=== PATIENT | male | born 1960 | race Caucasian/White ===

== ENCOUNTER 2025-04-02 21:53 | Inpatient (IN) | payer MEDICAID, SELFPAY ==
--- NOTE | ~2025-04-02 | CT_ITS ---
CLINICAL HISTORY: R flank Pain; Hematuria CT abdomen and pelvis with contrast Comparison: None provided Findings: No consolidation or effusion. There is a right lower lobe 4 mm nodule, series 5, image . The remainder of pulmonary parenchyma is normal. Stomach is distended. Spleen is normal. Hepatic parenchyma is normal. Gallbladder is decompressed. Pancreas is normal. The kidneys demonstrate normal enhancement. No hydronephrosis, renal lithiasis, or ureteral lithiasis. No evidence of hydroureter. Prostate demonstrates multiple intra prostate radiation seeds. There is high density material within the dependent bladder which may represent hematuria, blood products, or less likely intra vesicular mass. There is bladder wall thickening without complete bladder distention. No masses at the ureteral vesicular junction. No ureterovesicular junction stones. Small bowel is normal. Large bowel is normal. Diverticulosis without evidence of diverticulitis present in the sigmoid colon. No adenopathy. No acute spinal fracture. No focal lytic or sclerotic osseous lesions. Left sacroiliac partial fusion. IMPRESSION: No evidence of hydronephrosis, renal lithiasis, or hydroureter. High density material within the dependent bladder may represent hematuria or less likely hyperdense intravesicular mass. Prostate hypertrophy status post placement of prostate radiotherapy seeds. This document has been electronically signed by: Yordan Lee III, MD PHD on 04/03/2025 00:54:39
[2025-04-02 21:57] VITALS: BP 117/79; PULSE 99; RESP 18; TEMP 36.7; O2SAT 96; BMI 27.6
[2025-04-02 22:12] LABS: MANUAL DIFF FLAG NO
[2025-04-02 22:13] LABS: Hematocrit 43.6 % (42.0-52.0); Hemoglobin 15.1 g/dl (14.0-18.0); Imm Gran Abs Auto 0.02 X10*3/uL (0.00-0.03); Imm Gran Pct Auto 0.2 % (0.0-0.4); Lymphocytes Absolute Auto 2.8 X10*3/uL (1.2-4.9); Mean Corpuscular HGB Conc 34.6 g/dl (31.0-36.0); Mean Corpuscular Hemoglobin 31.7 pg (27.0-33.0); Mean Corpuscular Volume 91.6 fL (80.0-98.0); NRBC Abs Auto 0.000 X10*3/uL (0.0-0.012); NRBC Pct Auto 0.0 /100WBC (0.0-0.2); Platelet Count 233 X10*3/uL (160-400); Red Blood Count 4.76 X10*6/uL (4.60-5.80); White Blood Count 8.9 X10*3/uL (4.8-10.8)
[2025-04-02 22:27] LABS: Alanine Aminotransferase 54 U/L (0-40); Albumin Level 4.6 g/dL (3.5-5.0); Alkaline Phosphatase 83 U/L (39-117); Anion Gap 10 (12-20); Aspartate Amino Transferase 34 U/L (5-37); Blood Urea Nitrogen 13 mg/dL (9-16); Calcium 9.6 mg/dL (8.4-10.2); Carbon Dioxide 24 mmol/L (22-29); Chloride 109 mmol/L (96-108); Creatinine Clr Calc Pharmacy 99.4; Estimated Glomerular Filt Rate > 60; Potassium 4.0 mmol/L (3.3-5.1); Sodium 139 mmol/L (135-145); Total Protein 7.0 g/dL (6.5-8.0)
--- NOTE | 2025-04-02 22:42 | PC.NURSE ---
pt a&ox4, respirations even and unlabored. pt reports onset of blood in urine, pain with urination and trouble urinating x1 day, pt reports mild left flank pain but reports it is intermittent. pt provided urine sample at this time, urine noted to be bright red with clots. pt reports he has trouble starting a stream of urine. sample obtained and sent to lab
[2025-04-02 22:57] LABS: Appearance Urine Clear; Glucose Urine UA 100 mg/dL (Negative); PH 6.0 (5.0-9.0); Specific Gravity - Urine 1.010 (1.005-1.025); UMIC TRIGGER UACC YES
[2025-04-02 23:08] LABS: UACC Culture Trigger YES
--- NOTE | 2025-04-02 23:48 | ED_ITS ---
HPI - Male Genitourinary General Chief complaint: Urogenital-Male Stated complaint: blood in urine Time Seen by Provider: 04/02/25 23:46 Source: patient and family Mode of arrival: ambulatory Limitations: no limitations History of Present Illness ED Provider: Duran ROBLES HPI Narrative: The patient is a 64-year-old male presenting to the ED reporting since Saturday he has been experiencing a very dull mild right-sided flank pain, and 2 days ago developed gross hematuria. The patient denies associated fever/chills, nausea, vomiting, or history of kidney stones. Patient reports history of BPH with a UroLift procedure 1 year ago, no recent instrumentation. The patient has not attempted any medication for his symptoms, does not currently follow with his urologist. Related Data Allergies Allergy/AdvReac Type Severity Reaction Status Date / Time peanut Allergy Anaphylaxis Verified 04/02/25 21:59 Review of Systems 2 Review of Systems: Yes all other systems are reviewed and are negative PMFSH Social History Social History Smoked in Last 30 Days: No Use of substances other than those prescribed or required for medical reasons: No Advance Directives: No Physical Exam 2 Vital Signs: Vital Signs: Last Vital Signs Temp 98.5 F 04/03/25 02:48 Pulse 65 04/03/25 02:48 Resp 16 04/03/25 02:48 BP 117/75 04/03/25 02:48 Pulse Ox 96 04/03/25 02:48 O2 Del Method Room Air 04/03/25 02:48 BMI result Body Mass Index 27.6 CONSTITUTIONAL: The patient appears non-toxic, well nourished and in no acute distress. Vital signs as documented. HEAD: Atraumatic, normocephalic. EYES: EOMs grossly intact, pupils equal, conjunctiva clear, no exudate. ENT: Nares patent, no discharge. Airway patent, no audible stridor, visible mucosa is pink and moist without noted lesions. NECK: Trachea is midline, no obvious masses or gross abnormalities. CHEST: Symmetric movement, normal appearance. LUNGS: LS present and CTAB, no w/r/r. Non-labored work of breathing. CARDIAC: Regular Rhythm, S1/S2 appreciated, no murmurs, rubs or gallops. ABDOMEN: Abdomen soft and non-tender x4 quadrants, no palpable masses or organomegaly. Positive CVAT on the right, negative on the left. : Deferred. EXTREMITIES: Normal tone, moves all extremities spontaneously without reported pain. No obvious acute injury or deformity noted. NEURO: Alert and oriented x3, CN II-XII appear grossly intact. Cerebellar Functioning grossly intact. No obvious sensory or motor deficits. Speech clear and appropriate. PSYCH: normal affect, appropriate eye contact, fluid speech, with appropriate response to questioning. No reported suicidality or homicidality. SKIN: Warm, dry, color appropriate, normal turgor. No rashes noted. Medications Administered Discontinued Medications Generic Name Dose Route Start Last Admin Trade Name Freq PRN Reason Stop Dose Admin Diazepam 5 mg 04/03/25 01:07 04/03/25 01:34 Diazepam 10 Mg/2 Ml Cartridge IVPUSH 04/03/25 01:08 5 mg STAT STA Administration Sodium Chloride 1,000 mls @ 999 mls/hr 04/02/25 23:45 04/03/25 01:52 Ns IV 04/03/25 00:45 Infused .Q1H1M DANY Infusion Iohexol 85 ml 04/03/25 00:19 04/03/25 00:19 Iohexol 350 Mg/Ml 100 Ml Infus..Btl IV 04/03/25 00:20 85 ml ONCE ONE Administration Ketorolac Tromethamine 15 mg 04/02/25 23:49 04/03/25 00:19 Ketorolac Tromethamine 15 Mg/Ml Vial IVPUSH 04/02/25 23:50 15 mg ONCE ONE Administration Medical Decision Making Medical Decision Making MDM Narrative: 11:55 PM 04/02/2025 (Shagufta ROBLES): The patient is a 64-year-old male presenting to the ED for evaluation of a dull right flank pain since Saturday, with hematuria for the past 2 days. The patient denies history of kidney stones, exam is largely reassuring with only mild right CVAT. Laboratory evaluation shows no leukocytosis, anemia, electrolyte abnormality, or INDY. The patient's LFTs are unremarkable. The patient's urinalysis shows protein, glucose, blood, nitrites, and trace bacteria. Patient is having no dysuria. The patient will be treated with IV fluid hydration, Toradol, and we will obtain CT to evaluate for kidney stone versus less likely cystitis or pyelonephritis. 1:09 AM 04/03/2025 (Shagufta ROBLES): The patient's CT has resulted and shows no hydroureter, hydronephrosis, or obvious renal stone. The patient's bladder does show hyperdense material consistent with likely blood versus less likely mass. BPH is noted consistent with the patient's reported history. The patient will have a Christianson catheter placed for CBI, if unable to clear hematuria patient will be admitted for urology consultation. Of note the patient is currently feeling highly anxious, we will treat with IV Valium. 3:42 AM 04/03/2025 (Shagufta ROBLES): The patient has had a total of 6 L of continuous bladder irrigation, despite this patient still continues to have blood-tinged urine, we will admit for continued CBI and consideration of urology consultation. Admission/Observation Consideration of admission/observation: Escalation of care including admission/observation considered Consult Healthcare Provider Management of the patient was discussed with: Hospitalist Lab Data MDM Lab Attestation statement: I reviewed the patient's lab results. 04/02/25 22:06 04/02/25 22:06 Labs: Lab Results 04/02/25 04/02/25 Range/Units 22:06 22:39 WBC 8.9 (4.8-10.8) X10*3/uL RBC 4.76 (4.60-5.80) X10*6/uL Hgb 15.1 (14.0-18.0) g/dl Hct 43.6 (42.0-52.0) % MCV 91.6 (80.0-98.0) fL MCH 31.7 (27.0-33.0) pg MCHC 34.6 (31.0-36.0) g/dl RDW 12.8 (11.0-16.0) % Plt Count 233 (160-400) X10*3/uL MPV 9.3 L (9.4-12.4) fL Immature Gran % (Auto) 0.2 (0.0-0.4) % Neut % (Auto) 55.9 (45-73) % Lymph % (Auto) 31.4 (20-40) % [place] % (Auto) 8.4 (2-11) % Eos % (Auto) 3.4 (0-4) % Baso % (Auto) 0.7 (0-2) % Lymph # (Auto) 2.8 (1.2-4.9) X10*3/uL [place] # (Auto) 0.8 (0.1-1.2) X10*3/uL Eos # (Auto) 0.3 (0.0-0.4) X10*3/uL Baso # (Auto) 0.1 (0.0-0.2) X10*3/uL Abs Immat Gran (auto) 0.02 (0.00-0.03) X10*3/uL Absolute Neuts (auto) 5.0 (2.0-8.3) x10*3/uL Absolute Nucleated RBC 0.000 (0.0-0.012) X10*3/uL Nucleated RBC % (auto) 0.0 (0.0-0.2) /100WBC Sodium 139 (135-145) mmol/L Potassium 4.0 (3.3-5.1) mmol/L Chloride 109 H (96-108) mmol/L Carbon Dioxide 24 (22-29) mmol/L Anion Gap 10 L (12-20) BUN 13 (9-16) mg/dL Creatinine 0.77 (0.5-1.4) mg/dL Estim Creat Clear Calc 99.4 Estimated GFR > 60 Random Glucose 111 (60-115) mg/dL Calcium 9.6 (8.4-10.2) mg/dL Total Bilirubin 0.2 (0.0-1.0) mg/dL AST 34 (5-37) U/L ALT 54 H (0-40) U/L Alkaline Phosphatase 83 (39-117) U/L Total Protein 7.0 (6.5-8.0) g/dL Albumin 4.6 (3.5-5.0) g/dL Urine Color PINK Urine Appearance Clear Urine pH 6.0 (5.0-9.0) Ur Specific [place] 1.010 (1.005-1.025) Urine Protein 300 (3+) H (Neg-Trace) mg/dL Urine Glucose (UA) 100 H (Negative) mg/dL Urine Ketones Negative (Negative) mg/dL Urine Blood Large (3+) H (Negative) Urine Nitrite Positive H (Negative) Ur Leukocyte Esterase Negative (Negative) Urine RBC >20 H (0-2) /HPF Urine WBC 0-5 (0-5) /HPF Ur Squamous Epith Cells 0-2 (0-2) /HPF Urine Bacteria Trace (None Seen) Hyaline Casts 0-2 (0-2) /LPF Radiology Impression Discussion of test interpretation with radiology: I have reviewed the radiologist's reading. Radiologist Impression: CLINICAL HISTORY: R flank Pain; Hematuria CT abdomen and pelvis with contrast Comparison: None provided Findings: No consolidation or effusion. There is a right lower lobe 4 mm nodule, series 5, image 9/83. The remainder of pulmonary parenchyma is normal. Stomach is distended. Spleen is normal. Hepatic parenchyma is normal. Gallbladder is decompressed. Pancreas is normal. The kidneys demonstrate normal enhancement. No hydronephrosis, renal lithiasis, or ureteral lithiasis. No evidence of hydroureter. Prostate demonstrates multiple intra prostate radiation seeds. There is high density material within the dependent bladder which may represent hematuria, blood products, or less likely intra vesicular mass. There is bladder wall thickening without complete bladder distention. No masses at the ureteral vesicular junction. No ureterovesicular junction stones. Small bowel is normal. Large bowel is normal. Diverticulosis without evidence of diverticulitis present in the sigmoid colon. No adenopathy. No acute spinal fracture. No focal lytic or sclerotic osseous lesions. Left sacroiliac partial fusion. IMPRESSION: No evidence of hydronephrosis, renal lithiasis, or hydroureter. High density material within the dependent bladder may represent hematuria or less likely hyperdense intravesicular mass. Prostate hypertrophy status post placement of prostate radiotherapy seeds. This document has been electronically signed by: Yordan Lee III, MD PHD on 04/03/2025 00:54:39 Discharge Plan Discharge Clinical Impression: Hematuria Patient Disposition: Admitted As Inpatient Print Language: Lao
[2025-04-03] VITALS (7 sets, daily range): BP systolic 117–162; BP diastolic 61–98; PULSE 59–77; RESP 15–20; TEMP 36.1–37; O2SAT 95–100; BMI 27.6
[2025-04-03] MEDS: iohexoL 350 MG/ML 100 ML INFUS..BTL 85 ML IV (00:19)
[2025-04-03] MEDS: diazePAM 10 MG/2 ML CARTRIDGE 5 MG IVPUSH (01:34)
--- NOTE | 2025-04-03 01:51 | PC.NURSE ---
3 way catheter placed per provider order at this time, initially 100ml of bright red blood drained. 22F [address] way coude placed with 35ml in balloon. pt tolerated well and offers no complaints
--- NOTE | 2025-04-03 04:06 | PM.IMHP ---
History of Present Illness Date of Service: 04/03/25 Attending physician on admission: Cristal Wogn Chief Complaint: hematuria Patient is a 64-year-old male with a past medical history significant for BPH s/p radioactive seed therapy with UroLift, and HLD, who presented to the ED due to right-sided flank pain x3 days and hematuria x2 days. Patient reports that the flank pain is mild. No fever, chills, nausea, vomiting or dysuria. He denies any recent instrumentation. He states he has urinary frequency at baseline but has had more nocturia. Review of Systems Constitutional: Constitutional: Denies body ache(s), Denies fatigue and Denies headache(s) Eyes: Eyes: Denies change in vision ENT: Denies headache(s), Denies nasal discharge and Denies sore throat Cardiovascular: Cardiovascular: Denies chest pain, Denies rapid heart rate, Denies lightheadedness and Denies dyspnea Respiratory: Respiratory: Denies chest congestion, Denies cough, Denies dyspnea and Denies wheezing Gastrointestinal: Gastrointestinal: Denies abdominal pain, Denies nausea and Denies vomiting Genitourinary: Genitourinary: Reports as per HPI and Reports hematuria Musculoskeletal: Musculoskeletal: Reports back pain, Denies myalgias and Denies numbness Integumentary/Breasts: Skin/Breast: Denies rash Neurologic: Denies confusion, Denies headache(s) and Denies numbness Psychiatric: Psychiatric: Denies confusion Endocrine: Endocrine: Denies fatigue Hematologic/Lymphatic: Hematologic/Lymphatic: Denies easy bleeding and Denies easy bruising Allergic/Immunologic: Allergic/Immunologic: Denies wheezing [facility] Medical History (Updated 04/03/25 @ 04:09 by Alejandra Rucker PA-C) HLD (hyperlipidemia) BPH (benign prostatic hyperplasia) Functional capacity: independent ambulation Social History Patient Tobacco Use Status: Never used Tobacco Meds Allergies Allergy/AdvReac Type Severity Reaction Status Date / Time peanut Allergy Anaphylaxis Verified 04/02/25 21:59 Physical Exam Vital Signs and Narrative: Vital Signs: Last Vital Signs Temp 98.5 F 04/03/25 02:48 Pulse 65 04/03/25 02:48 Resp 16 04/03/25 02:48 BP 117/75 04/03/25 02:48 Pulse Ox 96 04/03/25 02:48 O2 Del Method Room Air 04/03/25 02:48 BMI result Body Mass Index 27.6 General: AOx3, no acute distress Resp: CTA bilaterally CVS: S1, S2, RRR GI/: +BS, NT, no distention. CBI running, pink tinged urine Skin: Warm, dry Neuro: Cranial nerves II-XII grossly intact bilaterally. Motor grossly intact bilaterally Extremities: No LE edema Psych: Appropriate affect Const: General: No confusion Orientation/consciousness: No confusion Neuro: General: No confusion Results Labs 04/02/25 22:06 04/02/25 22:06 Labs: Laboratory Results - last 24 hr 04/02/25 04/02/25 22:06 22:39 MCV 91.6 MCH 31.7 MCHC 34.6 RDW 12.8 Plt Count 233 MPV 9.3 L Immature Gran % (Auto) 0.2 Neut % (Auto) 55.9 Lymph % (Auto) 31.4 [place] % (Auto) 8.4 Eos % (Auto) 3.4 Baso % (Auto) 0.7 Lymph # (Auto) 2.8 [place] # (Auto) 0.8 Eos # (Auto) 0.3 Baso # (Auto) 0.1 Abs Immat Gran (auto) 0.02 Absolute Neuts (auto) 5.0 Absolute Nucleated RBC 0.000 Nucleated RBC % (auto) 0.0 Anion Gap 10 L Estim Creat Clear Calc 99.4 Estimated GFR > 60 Random Glucose 111 Calcium 9.6 Total Bilirubin 0.2 AST 34 ALT 54 H Alkaline Phosphatase 83 Total Protein 7.0 Albumin 4.6 Urine Color PINK Urine Appearance Clear Urine pH 6.0 Ur Specific [place] 1.010 Urine Protein 300 (3+) H Urine Glucose (UA) 100 H Urine Ketones Negative Urine Blood Large (3+) H Urine Nitrite Positive H Ur Leukocyte Esterase Negative Urine RBC >20 H Urine WBC 0-5 Ur Squamous Epith Cells 0-2 Urine Bacteria Trace Hyaline Casts 0-2 Assessment and Plan (1) Hematuria: Qualifiers: Hematuria type: gross Qualified Code(s): R31.0 - Gross hematuria Status: Acute (2) UTI (urinary tract infection): Status: Acute Plan Patient is a 64-year-old male with a past medical history significant for BPH s/p radioactive seed therapy with UroLift, and HLD, who presented to the ED due to right-sided flank pain x3 days and hematuria x2 days. hematuria/UTI - no leukocytosis, vitals stable, lactic acid and blood cultures ordered - UA with large blood, nitrate positive, trace bacteria - ceftriaxone Q24H pending culture - A/P CT with no evidence of hydronephrosis, renal lithiasis or hydroureter. High density material within the dependent bladder may represent hematuria or less likely hyperdense intravesicular mass. Prostate hypertrophy status post placement of prostate radiotherapy seeds - placed on CBI - urology consult - follow CBC and BMP HLD - continue home meds moderate persistent asthma, no acute exacerbation - continue home meds med rec pending full code VTE prophy: pneumoboots Patient with gross hematuria complicated by possible UTI, requiring admission for at least 2 midnights stay for IV antibiotics and urology consultation. Quality Stroke Does the patient have a stroke diagnosis?: No VTE Prior VTE?: No VTE Risk Level:: Medical - moderate - high VTE Device Contraindication: N/A - Device Ordered VTE Drug Contraindication: Treatment Not Indicated
--- NOTE | 2025-04-03 04:29 | PC.NURSE ---
per Alejandra ROBLES, obtain blood cultures prior to antibiotics administration
[2025-04-03 06:55] LABS: Hematocrit 41.1 % (42.0-52.0); Hemoglobin 14.6 g/dl (14.0-18.0); Mean Corpuscular HGB Conc 35.5 g/dl (31.0-36.0); Mean Corpuscular Hemoglobin 32.4 pg (27.0-33.0); Mean Corpuscular Volume 91.3 fL (80.0-98.0); NRBC Abs Auto 0.000 X10*3/uL (0.0-0.012); NRBC Pct Auto 0.0 /100WBC (0.0-0.2); Platelet Count 230 X10*3/uL (160-400); Red Blood Count 4.50 X10*6/uL (4.60-5.80); White Blood Count 7.2 X10*3/uL (4.8-10.8)
--- NOTE | 2025-04-03 07:07 | PC.NURSE ---
Addendum entered by Dilcia Black RN 04/03/25 07:08: Patient is a 64-year-old male with a past medical history significant for BPH s/p radioactive seed therapy with UroLift, and HLD, who presented to the ED due to right-sided flank pain x3 days and hematuria x2 days. Patient reports that the flank pain is mild. No fever, chills, nausea, vomiting or dysuria. Alert and oriented. Lungs clear bilat. Respirations even and non-labored. Abdomen soft with positive bowel sounds. CBI infusing and urine appears light pink at this time. Positive pedal pulses with no edema. Pending a bed assignment Original Note: Medical History HLD (hyperlipidemia) BPH (benign prostatic hyperplasia)
[2025-04-03 07:17] LABS: Anion Gap 15 (12-20); Blood Urea Nitrogen 11 mg/dL (9-16); Calcium 9.0 mg/dL (8.4-10.2); Carbon Dioxide 22 mmol/L (22-29); Chloride 108 mmol/L (96-108); Creatinine Clr Calc Pharmacy 119.6; Estimated Glomerular Filt Rate > 60; Potassium 3.8 mmol/L (3.3-5.1); Sodium 141 mmol/L (135-145)
--- NOTE | 2025-04-03 07:42 | P.PNIM_ITS ---
Subjective Subjective Date of Service: 04/03/25 Physical Exam 2 Vital Signs: Vital Signs: Last Vital Signs Temp 98.5 F 04/03/25 02:48 Pulse 64 04/03/25 04:34 Resp 16 04/03/25 04:34 BP 120/76 04/03/25 04:34 Pulse Ox 97 04/03/25 04:34 O2 Del Method Room Air 04/03/25 04:34 BMI result Body Mass Index 27.6 Objective Data Active Medications Acetaminophen (Acetaminophen 325 Mg Tablet) 975 mg PO Q6H PRN PRN Reason: Pain, Mild 1-3,fever,headache Calcium Carbonate (Calcium Carbonate 750 Mg Tab.Chew) 750 mg PO Q4H PRN PRN Reason: Heartburn Ceftriaxone Sodium (Ceftriaxone Sodium 1 Gm Vial) 1 gm IVPUSH Q24H [facility] Last Admin: 04/03/25 04:43 Dose: 1 gm Documented By: GLADIS Magnesium Hydroxide (Milk Of Magnesia 30 Ml Oral.Susp) 30 ml PO DAILY PRN PRN Reason: Constipation Melatonin (Melatonin 3 Mg Tablet) 6 mg PO BEDTIME PRN PRN Reason: Insomnia Ondansetron HCl (Ondansetron Hcl 4 Mg/2 Ml Vial) 4 mg IVPUSH Q8H PRN PRN Reason: Nausea and Vomiting Oxycodone HCl (Oxycodone Hcl Immed Release 5 Mg Tablet) 5 mg PO Q6H PRN PRN Reason: Pain, Severe (Pain Scale 7-10) Sodium Chloride (0.9 % Sodium Chloride Flush 3 Ml Syringe) 3 ml IVFLUSH QSHIFT [facility] Labs 04/03/25 06:18 04/03/25 06:18 Labs: Laboratory Results - last 24 hr 04/02/25 04/02/25 04/03/25 22:06 22:39 04:31 MCV 91.6 MCH 31.7 MCHC 34.6 RDW 12.8 Plt Count 233 MPV 9.3 L Immature Gran % (Auto) 0.2 Neut % (Auto) 55.9 Lymph % (Auto) 31.4 [place] % (Auto) 8.4 Eos % (Auto) 3.4 Baso % (Auto) 0.7 Lymph # (Auto) 2.8 [place] # (Auto) 0.8 Eos # (Auto) 0.3 Baso # (Auto) 0.1 Abs Immat Gran (auto) 0.02 Absolute Neuts (auto) 5.0 Absolute Nucleated RBC 0.000 Nucleated RBC % (auto) 0.0 Anion Gap 10 L Estim Creat Clear Calc 99.4 Estimated GFR > 60 Random Glucose 111 Lactic Acid 0.8 Calcium 9.6 Total Bilirubin 0.2 AST 34 ALT 54 H Alkaline Phosphatase 83 Total Protein 7.0 Albumin 4.6 Urine Color PINK Urine Appearance Clear Urine pH 6.0 Ur Specific [place] 1.010 Urine Protein 300 (3+) H Urine Glucose (UA) 100 H Urine Ketones Negative Urine Blood Large (3+) H Urine Nitrite Positive H Ur Leukocyte Esterase Negative Urine RBC >20 H Urine WBC 0-5 Ur Squamous Epith Cells 0-2 Urine Bacteria Trace Hyaline Casts 0-2 04/03/25 06:18 MCV 91.3 MCH 32.4 MCHC 35.5 RDW 12.9 Plt Count 230 MPV 9.9 Immature Gran % (Auto) Neut % (Auto) Lymph % (Auto) [place] % (Auto) Eos % (Auto) Baso % (Auto) Lymph # (Auto) [place] # (Auto) Eos # (Auto) Baso # (Auto) Abs Immat Gran (auto) Absolute Neuts (auto) Absolute Nucleated RBC 0.000 Nucleated RBC % (auto) 0.0 Anion Gap 15 Estim Creat Clear Calc 119.6 Estimated GFR > 60 Random Glucose 89 Lactic Acid Calcium 9.0 D Total Bilirubin AST ALT Alkaline Phosphatase Total Protein Albumin Urine Color Urine Appearance Urine pH Ur Specific [place] Urine Protein Urine Glucose (UA) Urine Ketones Urine Blood Urine Nitrite Ur Leukocyte Esterase Urine RBC Urine WBC Ur Squamous Epith Cells Urine Bacteria Hyaline Casts Quality Stroke Does the patient have a stroke diagnosis?: No VTE Prior VTE?: No VTE Risk Level:: Medical - moderate - high VTE Device Contraindication: N/A - Device Ordered VTE Drug Contraindication: Treatment Not Indicated
[2025-04-03] MEDS: 0.9 % Sodium Chloride Flush 3 ML SYRINGE IVFLUSH ×2 (07:45→20:15)
--- NOTE | 2025-04-03 08:15 | PHA.MEDREC ---
Pharmacy Consult ? Medication Reconciliation Pharmacy has completed the medication reconciliation.Med rec complete, patient does not remember dose of [facility] wort
[2025-04-03] MEDS: oxyCODONE HCl Immed Release 5 MG TABLET PO (10:35)
--- NOTE | 2025-04-03 12:10 | PM.UROCN ---
History of Present Illness Consult details Consult date: 04/03/25 Narrative: CC: Hematuria 64-year-old male Prior UroLift procedure for BPH Had right-sided shoulder pain and started Naprosyn 3 days ago Subsequent hematuria Baseline is on fish oil Denies fever, chills, dysuria UA shows positive nitrite consistent with infectious cystitis Christianson catheter placed with irrigation Irrigation procedure performed Christianson catheter disconnected from collection bag. Irrigation halted. Bladder irrigated for removal remnant clots The completion of irrigation catheter bag reattached. Irrigation restarted. Irrigation may be halted once collection bed free of clot for 12 hours. P.r.n. irrigation with 100 cc for clot Hematuria Bladder Irriation CPT 62567 We will need 7 days antibiotics for UTI management Review of Systems Constitutional: Constitutional: Denies chills and Denies fever(s) Cardiovascular: Cardiovascular: Reports no additional cardiovascular complaints and Denies syncope Respiratory: Respiratory: Denies cough Gastrointestinal: Gastrointestinal: Denies abdominal pain and Denies heartburn Genitourinary: Genitourinary: Reports as per HPI and Denies change in libido Neurologic: Denies syncope Psychiatric: Psychiatric: Denies change in libido Endocrine: Endocrine: Denies change in libido [facility] Past Medical History Medical History (Updated 04/03/25 @ 04:09 by Alejandra Rucker PA-C) HLD (hyperlipidemia) BPH (benign prostatic hyperplasia) Social History Social History Household Members: None Housing: House Patient Tobacco Use Status: Current everyday Tobacco user Cigarette Packs Per Day: 0.5 Cigarettes Per Day: 10.0 Meds Allergies Allergy/AdvReac Type Severity Reaction Status Date / Time peanut Allergy Anaphylaxis Verified 04/02/25 21:59 Active Medications: Current Medications Acetaminophen (Acetaminophen 325 Mg Tablet) 975 mg PO Q6H PRN PRN Reason: Pain, Mild 1-3,fever,headache Calcium Carbonate (Calcium Carbonate 750 Mg Tab.Chew) 750 mg PO Q4H PRN PRN Reason: Heartburn Ceftriaxone Sodium (Ceftriaxone Sodium 1 Gm Vial) 1 gm IVPUSH Q24H [facility] Last Admin: 04/03/25 04:43 Dose: 1 gm Magnesium Hydroxide (Milk Of Magnesia 30 Ml Oral.Susp) 30 ml PO DAILY PRN PRN Reason: Constipation Melatonin (Melatonin 3 Mg Tablet) 6 mg PO BEDTIME PRN PRN Reason: Insomnia Ondansetron HCl (Ondansetron Hcl 4 Mg/2 Ml Vial) 4 mg IVPUSH Q8H PRN PRN Reason: Nausea and Vomiting Oxycodone HCl (Oxycodone Hcl Immed Release 5 Mg Tablet) 5 mg PO Q6H PRN PRN Reason: Pain, Severe (Pain Scale 7-10) Last Admin: 04/03/25 10:35 Dose: 5 mg Sodium Chloride (0.9 % Sodium Chloride Flush 3 Ml Syringe) [facility] Last Admin: 04/03/25 07:45 Dose: 3 ml Home Medications ?Medication ?Instructions ?Recorded ?Confirmed ?Last Taken ?Type Shai's wort 300 mg tablet 0 mg PO DAILY 04/03/25 Unknown History albuterol sulfate 90 mcg/actuation 2 puff inhalation Q6H PRN 04/03/25 04/03/25 Unknown History aerosol inhaler Respiratory Distress cetirizine 10 mg tablet (Zyrtec) 10 mg PO DAILY 04/03/25 04/03/25 Unknown History epinephrine 0.3 mg/0.3 mL 0.3 mg IM Q15M PRN PEANUT ALLERGY 04/03/25 04/03/25 Unknown History injection, auto-injector multivitamin 1 tab PO DAILY 04/03/25 04/03/25 Unknown History omega 0-oid-smw-fish oil 1,000 mg 2 cap PO DAILY 04/03/25 04/03/25 Unknown History (120 mg-180 mg) capsule (Fish Oil) rosuvastatin 5 mg tablet 5 mg PO BEDTIME 04/03/25 04/03/25 Unknown History tamsulosin 0.4 mg capsule 0.4 mg PO BEDTIME 04/03/25 04/03/25 Unknown History Physical Exam Vital Signs: Vital Signs: Last Vital Signs Temp 97 F 04/03/25 10:36 Pulse 59 04/03/25 10:36 Resp 20 04/03/25 10:36 BP 162/98 H 04/03/25 10:36 Pulse Ox 98 04/03/25 10:36 O2 Del Method Room Air 04/03/25 10:36 BMI result Body Mass Index 27.6 Const: General: cooperative, healthy appearing, comfortable and no acute distress Orientation/consciousness: patient oriented x3 HEENT: Face and sinus: Yes normal facial exam Mouth: moist mucous membranes Neck: Neck: Yes normal visual inspection, Yes full ROM and Yes trachea midline Chest: Chest palpation & inspection: normal inspection of the chest Resp: Effort & Inspection: normal respiratory effort, able to speak in complete sentences and no respiratory distress GI: Inspection: Yes normal to inspection Back/Spine/Pelvis: Cervical Spine: normal cervical lordosis Thoracic/Lumbar Spine: thoracic and lumbar spine normal to inspection Skin: General skin exam: no rashes or lesions noted Neuro: General: patient oriented x3, gait normal, tone normal and moves all extremities Extrem: General: Yes normal to inspection and Yes capillary refill normal Results Labs 04/03/25 06:18 04/03/25 06:18 Labs: Abnormal lab results 04/02/25 04/02/25 04/03/25 Range/Units 22:06 22:39 06:18 RBC 4.50 L (4.60-5.80) X10*6/uL Hct 41.1 L (42.0-52.0) % MPV 9.3 L (9.4-12.4) fL Chloride 109 H (96-108) mmol/L Anion Gap 10 L (12-20) ALT 54 H (0-40) U/L Urine Protein 300 (3+) H (Neg-Trace) mg/dL Urine Glucose (UA) 100 H (Negative) mg/dL Urine Blood Large (3+) H (Negative) Urine Nitrite Positive H (Negative) Urine RBC >20 H (0-2) /HPF Short CBC 04/02/25 04/03/25 Range/Units 22:06 06:18 WBC 8.9 7.2 (4.8-10.8) X10*3/uL Hgb 15.1 14.6 (14.0-18.0) g/dl Hct 43.6 41.1 L (42.0-52.0) % Plt Count 233 230 (160-400) X10*3/uL BMP 04/02/25 04/03/25 22:06 06:18 Sodium 139 141 Potassium 4.0 3.8 Chloride 109 H 108 Carbon Dioxide 24 22 BUN 13 11 Creatinine 0.77 0.64 Calcium 9.6 9.0 D Liver Function 04/02/25 Range/Units 22:06 Total Bilirubin 0.2 (0.0-1.0) mg/dL AST 34 (5-37) U/L ALT 54 H (0-40) U/L Alkaline Phosphatase 83 (39-117) U/L Albumin 4.6 (3.5-5.0) g/dL Urine 04/02/25 Range/Units 22:39 Urine Color PINK Urine Appearance Clear Urine pH 6.0 (5.0-9.0) Ur Specific [place] 1.010 (1.005-1.025) Urine Protein 300 (3+) H (Neg-Trace) mg/dL Urine Glucose (UA) 100 H (Negative) mg/dL All other labs normal. Assessment and Plan (1) Hematuria: Qualifiers: Hematuria type: gross Qualified Code(s): R31.0 - Gross hematuria Status: Acute (2) UTI (urinary tract infection): Status: Acute Plan CBI Antibiotics for UTI Procedures Date of Service Date of Service: 04/03/25
--- NOTE | 2025-04-03 12:11 | PM.EVENT ---
Event Note Date of Service: 04/03/25 Event Note: 64-year-old male with history of BPH s/p radioactive seed therapy with UroLift, hyperlipidemia admitted for gross hematuria and UTI. Gross hematuria/UTI A/P CT with no evidence of hydronephrosis, renal lithiasis or hydroureter. High density material within the dependent bladder may represent hematuria or less likely hyperdense intravesicular mass. Prostate hypertrophy status post placement of prostate radiotherapy seeds Urology consult. Continue CBI for now IV ceftriaxone, follow cultures Flomax Follows with [facility] Agree with remainder of plan Full code VT prophylaxis-compression, early ambulation Time Spent With Patient Time: Total time managing care of this patient today ____ minutes.
--- NOTE | 2025-04-03 18:40 | PC.NURSE ---
Pt feeling pressure, manually irrigated, clot noted, feels pressure relief.
[2025-04-04 03:03] VITALS: BP 126/72; PULSE 62; RESP 18; TEMP 36.1; O2SAT 96
[2025-04-04 06:40] LABS: Hematocrit 41.1 % (42.0-52.0); Hemoglobin 14.4 g/dl (14.0-18.0); Mean Corpuscular HGB Conc 35.0 g/dl (31.0-36.0); Mean Corpuscular Hemoglobin 32.2 pg (27.0-33.0); Mean Corpuscular Volume 91.9 fL (80.0-98.0); NRBC Abs Auto 0.000 X10*3/uL (0.0-0.012); NRBC Pct Auto 0.0 /100WBC (0.0-0.2); Platelet Count 201 X10*3/uL (160-400); Red Blood Count 4.47 X10*6/uL (4.60-5.80); White Blood Count 8.8 X10*3/uL (4.8-10.8)
[2025-04-04 06:57] LABS: Anion Gap 13 (12-20); Blood Urea Nitrogen 10 mg/dL (9-16); Calcium 9.2 mg/dL (8.4-10.2); Carbon Dioxide 24 mmol/L (22-29); Chloride 107 mmol/L (96-108); Creatinine Clr Calc Pharmacy 117.8; Estimated Glomerular Filt Rate > 60; Potassium 4.1 mmol/L (3.3-5.1); Sodium 140 mmol/L (135-145)
[2025-04-04 07:23] VITALS: BP 119/66; PULSE 61; RESP 16; TEMP 36.9; O2SAT 96
[2025-04-04] MEDS: 0.9 % Sodium Chloride Flush 3 ML SYRINGE IVFLUSH ×2 (08:00→21:26)
--- NOTE | 2025-04-04 15:22 | PC.NURSE ---
CBI paused at 1115 per TRAVIS Hdz with output continuing to be monitored. 1355- CBI resumed per TRAVIS Hdz due to punch colored urine with stranding and a large clot. Patient tolerating well. Indwelling catheter patent and draining.
[2025-04-04 16:00] VITALS: BP 132/72; PULSE 64; RESP 16; TEMP 36.9; O2SAT 96
--- NOTE | 2025-04-04 16:41 | MHC.CM.PN ---
PT REPORTS HE LIVES ALONE AND IS INDEPENDENT WITH CARE HE HAS NO DME AND NO SERVICES HE THINKS HE HAS A HCP, COPY REQUESTED PCP: BARTOLO OQUENDO DCP: HOME VIA PRIVATE TRANSPORT
--- NOTE | 2025-04-04 17:23 | P.PNIM_ITS ---
Subjective Subjective Date of Service: 04/04/25 Interval History: CBI initially stopped but restarted after catheter clogged by clot Pt without pain or significant discomfort No abd pain; denies N/V Review of Systems Review of Systems: Yes all other systems are reviewed and are negative Physical Exam 2 Exam: Exam: General: AOx3, no acute distress Resp: CTA bilaterally CVS: S1, S2, RRR GI: +BS, NT, no distention Skin: Warm, dry : Catheter in place with pink-tinged urine in Christianson Neuro: Cranial nerves II-XII grossly intact bilaterally. Motor grossly intact bilaterally Extremities: No edema Psych: Appropriate affect Vital Signs: Vital Signs: Last Vital Signs Temp 98.5 F 04/04/25 07:23 Pulse 61 04/04/25 07:23 Resp 16 04/04/25 07:23 BP 119/66 04/04/25 07:23 Pulse Ox 96 04/04/25 07:23 O2 Del Method Room Air 04/04/25 07:23 BMI result Body Mass Index 27.6 Objective Data Active Medications Acetaminophen (Acetaminophen 325 Mg Tablet) 975 mg PO Q6H PRN PRN Reason: Pain, Mild 1-3,fever,headache Albuterol Sulfate (Albuterol Sulfate 90 Mcg 8 Gm Inhaler) 2 puff INHALE Q6H PRN PRN Reason: Respiratory Distress Calcium Carbonate (Calcium Carbonate 750 Mg Tab.Chew) 750 mg PO Q4H PRN PRN Reason: Heartburn Ceftriaxone Sodium (Ceftriaxone Sodium 1 Gm Vial) 1 gm IVPUSH Q24H [facility] Last Admin: 04/04/25 03:59 Dose: 1 gm Documented By: LARY Loratadine (Loratadine 10 Mg Tablet) 10 mg PO DAILY [facility] Last Admin: 04/04/25 07:59 Dose: 10 mg Documented By: ELROY Magnesium Hydroxide (Milk Of Magnesia 30 Ml Oral.Susp) 30 ml PO DAILY PRN PRN Reason: Constipation Melatonin (Melatonin 3 Mg Tablet) 6 mg PO BEDTIME PRN PRN Reason: Insomnia Last Admin: 04/03/25 20:20 Dose: 6 mg Documented By: LARY Multivitamins/Vitamin C (Multivitamin Tablet) 1 tab PO DAILY [facility] Last Admin: 04/04/25 07:59 Dose: 1 tab Documented By: ELROY Non-Formulary Medication (Rosuvastatin) 5 mg PO BEDTIME [facility] Ondansetron HCl (Ondansetron Hcl 4 Mg/2 Ml Vial) 4 mg IVPUSH Q8H PRN PRN Reason: Nausea and Vomiting Oxycodone HCl (Oxycodone Hcl Immed Release 5 Mg Tablet) 5 mg PO Q6H PRN PRN Reason: Pain, Severe (Pain Scale 7-10) Last Admin: 04/03/25 10:35 Dose: 5 mg Documented By: CHERI Sodium Chloride (0.9 % Sodium Chloride Flush 3 Ml Syringe) 3 ml IVFLUSH QSHIFT [facility] Last Admin: 04/04/25 16:29 Dose: Not Given Documented By: ELROY Non-Admin Reason: Previously Administered Tamsulosin HCl (Tamsulosin Hcl 0.4 Mg Capsule) 0.4 mg PO BEDTIME [facility] Last Admin: 04/03/25 20:14 Dose: 0.4 mg Documented By: LARY Labs 04/04/25 06:12 04/04/25 06:12 Labs: Laboratory Results - last 24 hr 04/04/25 04/04/25 06:11 06:12 MCV 91.9 MCH 32.2 MCHC 35.0 RDW 12.9 Plt Count 201 MPV 9.8 Absolute Nucleated RBC 0.000 Nucleated RBC % (auto) 0.0 Hold Purple Top SEE NOTE Anion Gap 13 Estim Creat Clear Calc 117.8 Estimated GFR > 60 Random Glucose 106 Calcium 9.2 Microbiology Microbiology Results: Microbiology 04/02/25 Unknown Urine Culture - Final Urine clean catch No growth. 04/03/25 04:31 Blood Culture - Preliminary Blood - Venous No growth after 24 hours. 04/03/25 04:31 Blood Culture - Preliminary Blood - Venous No growth after 24 hours. Assessment and Plan (1) Hematuria: Status: Acute (2) UTI (urinary tract infection): Status: Acute Plan Patient is a 64-year-old male with a past medical history significant for BPH s/p radioactive seed therapy with UroLift, and HLD, who presented to the ED due to right-sided flank pain x3 days and hematuria x2 days. Gross hematuria/?UTI A/P CT with no evidence of hydronephrosis, renal lithiasis or hydroureter. High density material within the dependent bladder may represent hematuria or less likely hyperdense intravesicular mass. Prostate hypertrophy status post placement of prostate radiotherapy seeds Urology consulted, continue CBI as necessary; continues to have clots today UA culture negative; will discontinued IV abx; BCx negative @24h Flomax Follows with [facility] Will possibly need cystoscopy if bleeding does not stop HLD - continue home meds moderate persistent asthma, no acute exacerbation - continue home meds full code VTE prophy: pneumoboots Requires continued hospitalization due to continued gross hematuria needing CBI and close monitoring. Quality Stroke Does the patient have a stroke diagnosis?: No VTE Prior VTE?: No VTE Risk Level:: Medical - moderate - high VTE Device Contraindication: N/A - Device Ordered VTE Drug Contraindication: Treatment Not Indicated
--- NOTE | 2025-04-04 17:56 | PC.NURSE ---
Approximately 1715- CBI manually irrigated due to patient complaint of discomfort. CBI not draining upon initial assessment with this complaint. Manual irrigation revealed large blood clot. Patient reported relief. CBI patent and draining post procedure. TRAVIS Hdz notified.
[2025-04-04 19:39] VITALS: BP 122/76; PULSE 82; RESP 16; TEMP 36.6; O2SAT 95
[2025-04-05 03:35] VITALS: BP 105/66; PULSE 65; RESP 16; TEMP 36.2; O2SAT 94
[2025-04-05 06:36] LABS: Hematocrit 41.8 % (42.0-52.0); Hemoglobin 14.6 g/dl (14.0-18.0); Mean Corpuscular HGB Conc 34.9 g/dl (31.0-36.0); Mean Corpuscular Hemoglobin 31.9 pg (27.0-33.0); Mean Corpuscular Volume 91.5 fL (80.0-98.0); NRBC Abs Auto 0.000 X10*3/uL (0.0-0.012); NRBC Pct Auto 0.0 /100WBC (0.0-0.2); Platelet Count 223 X10*3/uL (160-400); Red Blood Count 4.57 X10*6/uL (4.60-5.80); White Blood Count 7.6 X10*3/uL (4.8-10.8)
[2025-04-05 07:09] LABS: Anion Gap 14 (12-20); Blood Urea Nitrogen 12 mg/dL (9-16); Calcium 9.4 mg/dL (8.4-10.2); Carbon Dioxide 25 mmol/L (22-29); Chloride 105 mmol/L (96-108); Creatinine Clr Calc Pharmacy 100.7; Estimated Glomerular Filt Rate > 60; Potassium 3.9 mmol/L (3.3-5.1); Sodium 140 mmol/L (135-145)
[2025-04-05] MEDS: 0.9 % Sodium Chloride Flush 3 ML SYRINGE IVFLUSH ×2 (07:57→20:44)
[2025-04-05 07:58] VITALS: BP 170/71; PULSE 66; RESP 17; TEMP 36.2; O2SAT 95
--- NOTE | 2025-04-05 12:02 | MHC.CM.PN ---
Per MD rounds patient not medically cleared for dc at this time, anticipate home self care in 1-2 days. CM will continue to follow.
[2025-04-05 16:23] VITALS: BP 127/80; PULSE 76; RESP 16; TEMP 36.6; O2SAT 95
--- NOTE | 2025-04-05 17:09 | HO.PM.IMPN ---
Subjective Subjective Date of Service: 04/05/25 Interval History: Patient noting persistent hematuria, and difficulty with urinating. Has required multiple flushes during CBI; produced small clots. Uncomfortable and causing pain. Has concerns with discharge home; specifically with repeated clots. Review of Systems Review of Systems: Yes all other systems are reviewed and are negative Physical Exam Exam: Exam: General: A&O x3, oriented to time place person and situation, comfortable, no pain Cardiac: S1, S2 auscultated with no S3/4, no MRG. Well perfused. Respiratory: Normal breath sounds auscultated throughout all lung zones, without wheezing, rales. Normal rate. GI/ : No abdominal pain on palpation, no masses or distentions. CBI ongoing, with catheter bag revealing bloody urine; some clots and catheter. MSK: Normal ambulation without pain at bony prominences or musculature Neurological: Normal neurological examination on overview, without obvious CN II-XII abnormalities. Vital Signs: Vital Signs: Last Vital Signs Temp 97.9 F 04/05/25 16:23 Pulse 76 04/05/25 16:23 Resp 16 04/05/25 16:23 BP 127/80 04/05/25 16:23 Pulse Ox 95 04/05/25 16:23 O2 Del Method Room Air 04/05/25 16:23 BMI result Body Mass Index 27.6 Objective Data Active Medications Acetaminophen (Acetaminophen 325 Mg Tablet) 975 mg PO Q6H PRN PRN Reason: Pain, Mild 1-3,fever,headache Albuterol Sulfate (Albuterol Sulfate 90 Mcg 8 Gm Inhaler) 2 puff INHALE Q6H PRN PRN Reason: Respiratory Distress Calcium Carbonate (Calcium Carbonate 750 Mg Tab.Chew) 750 mg PO Q4H PRN PRN Reason: Heartburn Loratadine (Loratadine 10 Mg Tablet) 10 mg PO DAILY [facility] Last Admin: 04/05/25 07:56 Dose: 10 mg Documented By: ALE Magnesium Hydroxide (Milk Of Magnesia 30 Ml Oral.Susp) 30 ml PO DAILY PRN PRN Reason: Constipation Melatonin (Melatonin 3 Mg Tablet) 6 mg PO BEDTIME PRN PRN Reason: Insomnia Last Admin: 04/03/25 20:20 Dose: 6 mg Documented By: LARY Multivitamins/Vitamin C (Multivitamin Tablet) 1 tab PO DAILY [facility] Last Admin: 04/05/25 07:56 Dose: 1 tab Documented By: ALE Non-Formulary Medication (Rosuvastatin) 5 mg PO BEDTIME [facility] Ondansetron HCl (Ondansetron Hcl 4 Mg/2 Ml Vial) 4 mg IVPUSH Q8H PRN PRN Reason: Nausea and Vomiting Oxycodone HCl (Oxycodone Hcl Immed Release 5 Mg Tablet) 5 mg PO Q6H PRN PRN Reason: Pain, Severe (Pain Scale 7-10) Last Admin: 04/03/25 10:35 Dose: 5 mg Documented By: CHERI Sodium Chloride (0.9 % Sodium Chloride Flush 3 Ml Syringe) 3 ml IVFLUSH QSHIFT [facility] Last Admin: 04/05/25 16:32 Dose: Not Given Documented By: ALE Non-Admin Reason: Patient Asleep Tamsulosin HCl (Tamsulosin Hcl 0.4 Mg Capsule) 0.4 mg PO BEDTIME [facility] Last Admin: 04/04/25 21:26 Dose: 0.4 mg Documented By: DEYSIK Labs 04/05/25 05:49 04/05/25 05:49 Labs: Laboratory Results - last 24 hr 04/05/25 05:49 MCV 91.5 MCH 31.9 MCHC 34.9 RDW 13.0 Plt Count 223 MPV 10.0 Absolute Nucleated RBC 0.000 Nucleated RBC % (auto) 0.0 Anion Gap 14 Estim Creat Clear Calc 100.7 Estimated GFR > 60 Random Glucose 101 Calcium 9.4 Microbiology Microbiology Results: Microbiology 04/03/25 04:31 Blood Culture - Preliminary Blood - Venous No growth after 48 hours. 04/03/25 04:31 Blood Culture - Preliminary Blood - Venous No growth after 48 hours. Assessment and Plan (1) Hematuria: Status: Acute (2) UTI (urinary tract infection): Status: Acute (3) BPH (benign prostatic hyperplasia): Status: Acute Plan Pleasant 64-year-old male, history of BPH, hypertension, hyperlipidemia, presents to the hospital with complaints of hematuria, admitted with hematuria and clots, requiring CBI. Gross Hematuria CT AP negative for hydronephrosis, nephrolithiasis or hydroureter. High density material in the bladder was identified, possibly representing hematuria less likely intravesicular mass. Prostatic hypertrophy identified with radiotherapy seeds Urology following-recommendations greatly appreciated. Antibiotics discontinued PLAN - continue Flomax - continue CBI - trial off CBI tonight - possible cystoscopy Hyperlipidemia Continue home medications [employer] - VTE: SCDs - CODE STATUS: Full code - DIET: Regular Total time managing care of this patient today: 35 minutes. Quality Stroke Does the patient have a stroke diagnosis?: No VTE Prior VTE?: No VTE Risk Level:: Medical - moderate - high VTE Device Contraindication: N/A - Device Ordered VTE Drug Contraindication: Treatment Not Indicated
[2025-04-05 19:45] VITALS: BP 118/69; PULSE 77; RESP 18; TEMP 36.6; O2SAT 95
[2025-04-06 03:37] VITALS: BP 115/74; PULSE 67; RESP 18; TEMP 36.3; O2SAT 93
[2025-04-06] MEDS: 0.9 % Sodium Chloride Flush 3 ML SYRINGE IVFLUSH (07:22)
[2025-04-06 07:23] VITALS: BP 114/66; PULSE 65; RESP 18; TEMP 36.4; O2SAT 94
--- NOTE | 2025-04-06 12:31 | PC.NURSE ---
CBI clamped since 08:20, FC patent draining jhony colored urine, no clots or shreds noted (pictures sent to MD via tiger text), pt denies pain, per MD Butler ok to remove 3 way FC. FC removed at 12:30, pt tolerated well.
[2025-04-06 15:26] VITALS: BP 116/69; PULSE 78; RESP 18; TEMP 36.6; O2SAT 95
--- NOTE | 2025-04-06 15:31 | MHC.CM.PN ---
Per MD likely cleared for dc this evening. DP: Home no services. Reviewed with patient who is in agreement and will arrange private transport. RN aware.
--- NOTE | 2025-04-06 16:03 | PM.DS ---
DS: Providers Provider Date of Service: 04/03/25 Date of admission: 04/03/25 04:01 Date of discharge: 04/06/25 Primary care physician: Raul Monique MD Consults: 04/03/25 04:03 Consult to Urology Routine Consulting Provider: Kvng Butler Reason for consultation: hematuria on CBI Has provider been notified: No Attending physician on discharge: Shreya Richey DS: Diagnosis Discharge Diagnosis (1) Hematuria: Status: Acute (2) UTI (urinary tract infection): Status: Acute (3) BPH (benign prostatic hyperplasia): Status: Acute DS: Summary Hospital Course Hospital Course: Pleasant 64-year-old male, history of BPH, hypertension, hyperlipidemia, presents to the hospital with complaints of hematuria, admitted with hematuria and clots, requiring CBI. Gross Hematuria CT AP negative for hydronephrosis, nephrolithiasis or hydroureter. High density material in the bladder was identified, possibly representing hematuria & less likely intravesicular mass. Antibiotic that were initially started on presentation were discontinued Prostatic hypertrophy identified with radiotherapy seeds Urology following-recommendations greatly appreciated -> planning outpatient cystoscopy. The patient's CBI was clamped, and output was monitored over the course of 12 hours after Christianson catheter removed. The patient has been urinating well without much issue. Intermittent pink urine. After extensive discussion with the patient, safe plan has been established that the patient is agreeable and comfortable with. Status at Discharge Cognitive/behavioral status at discharge: Alert and oriented person place and time Functional status at discharge: independent ambulation Overall status at discharge: patient is back to baseline Time Attestation Total time managing care of this patient today: 35 mintues. Discharge Coordination Time (in mins): 30 Quality: Safe Use of Opioids Does Pt have an Active Cancer Diagnosis on the Problem List?: No Quality: Stroke Does the patient have a stroke diagnosis?: No Physical Exam Exam: Exam: General: A&O x3, oriented to time place person and situation, comfortable, no pain Cardiac: S1, S2 auscultated with no S3/4, no MRG. Well perfused. Respiratory: Normal breath sounds auscultated throughout all lung zones, without wheezing, rales. Normal rate. GI/ : No abdominal pain on palpation, no masses or distentions. MSK: Normal ambulation without pain at bony prominences or musculature Neurological: Normal neurological examination on overview, without obvious CN II-XII abnormalities. Vital Signs: Vital Signs: Last Vital Signs Temp 97.8 F 04/06/25 15:26 Pulse 78 04/06/25 15:26 Resp 18 04/06/25 15:26 BP 116/69 04/06/25 15:26 Pulse Ox 95 04/06/25 15:26 O2 Del Method Room Air 04/06/25 15:26 BMI result Body Mass Index 27.6 DS: Data Data Completed and Pending Labs on day of discharge: Preliminary micro results at discharge 04/03/25 04:31 Blood Culture - Preliminary Blood - Venous No growth after 48 hours. 04/03/25 04:31 Blood Culture - Preliminary Blood - Venous No growth after 48 hours. Discharge Plan Discharge Anticipated Discharge Date/Time: 04/06/25 16:06 Patient Disposition: Home, Self-Care Discharge Diagnosis: Acute hematuria with clots requiring CBI, underlying BPH Referrals: Raul Monique MD [Primary Care Provider, [facility]] - 1 Week Discharge Medications: New lorazepam [Ativan] 0.5 mg tablet 0.5 mg PO BEDTIME PRN (Reason: anxiety) Qty: 5 0RF Continued rosuvastatin 5 mg Tablet 5 mg PO BEDTIME tamsulosin 0.4 mg Capsule 0.4 mg PO BEDTIME [place]'s wort 300 mg Tablet 0 mg PO DAILY multivitamin Tablet 1 tab PO DAILY cetirizine [Zyrtec] 10 mg Tablet 10 mg PO DAILY epinephrine 0.3 mg/0.3 mL Auto-Injector 0.3 mg IM Q15M PRN (Reason: PEANUT ALLERGY) Rx Instructions: for 2 doses albuterol sulfate 90 mcg/actuation Hfa Aerosol Inhaler 2 puff INHALATION Q6H PRN (Reason: Respiratory Distress) omega 2-yny-etu-fish oil [Fish Oil] 1,000 (120-180) mg Capsule 2 cap PO DAILY Discharge Orders: Discharge Order (Routine); Ordered 04/06/25 Ordered By: Shreya Richey Diet: Advance to usual diet Activity on Discharge: As tolerated Stand Alone Forms: Patient Portal Discharge page Print Language: Turkmen Care Plan Goals: Follow-up urology outpatient Return to hospital if unable to urinate, significant abdominal distention or if recurrent clots that do not resolve Follow with PCP outpatient Health Concerns: As above Plan of Treatment: As above Assessment: Stable back to baseline
== END 2025-04-06 17:28 | disposition home or self-care (01) | DRG 463 ==
LOC: HO.ED 04-03 03:43 → HO.EDOVER 04-03 04:04 → HO.S3 04-03 09:32
PROVIDERS: Admitting Provider Physician Assistant; Emergency Provider Emergency Medicine; PCP Internal Medicine; Visit Provider Hospitalist
DX: N39.0 Urinary tract infection, site not specified (principal); E78.5 Hyperlipidemia, unspecified; R31.0 Gross hematuria; N40.0 Benign prostatic hyperplasia without lower urinary tract symptoms; J45.40 Moderate persistent asthma, uncomplicated; F17.210 Nicotine dependence, cigarettes, uncomplicated; Z71.6 Tobacco abuse counseling; Z79.899 Other long term (current) drug therapy
CPT/HCPCS: 36415; 74177; 80048; 80053; 81001; 83605; 85025; 85027; 87040; 87086; 99285; J0696; J1885; J3360; Q9967

== ENCOUNTER → 2025-04-03 00:03 | Outpatient (BNV) | payer OTHER, SELFPAY | PROVIDERS: Emergency Provider Emergency Medicine; PCP Internal Medicine; Visit Provider Radiology Diagnostic Radiology | DX: R31.9 Hematuria, unspecified (principal) | CPT/HCPCS: 74177 ==

== ENCOUNTER → 2025-04-03 04:01 | Outpatient (BNV) | payer OTHER, SELFPAY | PROVIDERS: Admitting Provider Physician Assistant; Emergency Provider Emergency Medicine; PCP Internal Medicine; Visit Provider Urology | DX: R31.0 Gross hematuria (principal); N39.0 Urinary tract infection, site not specified | CPT/HCPCS: 99222 ==

== ENCOUNTER → 2025-04-03 04:01 | Outpatient (BNV) | payer OTHER, SELFPAY | PROVIDERS: Admitting Provider Physician Assistant; Emergency Provider Emergency Medicine; PCP Internal Medicine; Visit Provider Physician Assistant | DX: R31.0 Gross hematuria (principal); N39.0 Urinary tract infection, site not specified | CPT/HCPCS: 99223; 99232; 99499 ==